=== PATIENT | female | born 1960 | race Hispanic/Latino ===

== ENCOUNTER 2020-09-07 07:46 | Emergency (ER) | payer BC, MEDICARE ==
[2020-09-07 07:52] VITALS: BP 145/78
--- NOTE | 2020-09-07 08:38 | XRay Report ---
CHEST 2 VIEWS INDICATION / CLINICAL INFORMATION: SOB, COPD, and asthma.. COMPARISON: None available. FINDINGS: SUPPORT DEVICES: There is a right jugular Port-A-Cath with the tip near upper cavoatrial junction. HEART / MEDIASTINUM: The heart size and pulmonary vasculature are normal. LUNGS / PLEURA: The lungs are hyperinflated. There is a 6 cm rounded mass in the left lower hemithora x posteriorly. There is also a 1.5 cm nodular density in the right lung base. No pneumothorax. ADDITIONAL FINDINGS: No significant additional findings. IMPRESSION: 1. Emphysema. 2. 6 cm mass in the left lower hemithorax posteriorly is nonspecific and may just represent a Bochdal ek hernia rather than a pulmonary or pleural mass. There is also a small nodular density in the right lung base. CT of the chest may be helpful in further evaluation. Signer Name: Frankie Cunningham MD Signed: 09/07/2020 8:33 AM Workstation Name: [id number]
[2020-09-07] MEDS ORDERED: IPRATROPIUM 0.02% NEBU 2.5 ML IH ONE ×2 (09:32→09:54)
[2020-09-07] MEDS ORDERED: ALBUTEROL 2.5 MG/3 ML NEBU IH ONE ×2 (09:32→09:53)
--- NOTE | 2020-09-07 14:33 | Emergency Department Report ---
HPI - General Chief Complaint: Dyspnea/Respdistress Time Seen by Provider: 09/07/20 14:12 - HPI HPI: This is a 60-year-old female presents to the emergency department with a complaint of a 1 week history of wheezing, mixed dry and productive cough, and some shortness of breath. Patient states that when she does expectorate, the sputum appears green. She denies any fever, chest pain, back pain, lower extremity swelling. She has a past medical history of COPD, not home O2 dependent, asthma, and MS. The patient was placed on Augmentin and a Medrol Dosepak by her PCP, Dr. Jay Jay Vilchis. She spoke with the PCP again on [place], 2 nights ago, and was switched to a prednisone taper. She denies any tobacco or illicit drug use. No recent travel or sick contacts at home. No known exposure to anyone with COVID-19. ED Past Medical Hx - Past Medical History Previous Medical History?: Yes Hx Asthma: Yes Hx COPD: Yes Additional medical history: MS - Social History Smoking Status: Never Smoker Substance Use Type: None - Medications Home Medications: Home Medications Medication Instructions Recorded Confirmed Last Taken Type Sulfamethoxazole/Trimethoprim 1 each PO BID #14 tablet 03/07/20 Unknown Rx [Bactrim DS TAB] Ipratropium [Atrovent NEB] 0.5 mg IH Q6H PRN #1 box 09/07/20 Unknown Rx ED Review of Systems ROS: Stated complaint: ASTHMA ATTACK Other details as noted in HPI Comment: All other systems reviewed and negative Constitutional: denies: chills, fever Eyes: denies: eye pain, vision change ENT: denies: ear pain, throat pain Respiratory: cough, shortness of breath, wheezing Cardiovascular: denies: chest pain, palpitations, edema Gastrointestinal: denies: abdominal pain, vomiting Genitourinary: denies: dysuria, discharge Musculoskeletal: denies: back pain, arthralgia Skin: denies: rash, lesions Neurological: denies: headache, weakness Physical Exam - Physical Exam Vital Signs: Vital Signs 09/07/20 09/07/20 09/07/20 07:51 09:51 12:22 Temperature 98.0 F Pulse Rate 99 H 77 Respiratory 24 24 Rate Blood Pressure 145/78 [Right] O2 Sat by Pulse 94 91 95 Oximetry Physical Exam: GENERAL: The patient is well-developed well-nourished. HENT: Normocephalic. Atraumatic. Patient has moist mucous membranes. EYES: Extraocular motions are intact. NECK: Supple. Trachea is midline. CHEST/LUNGS: Mild wheezing throughout the chest. No cough heard during examination. No tachypnea or accessory muscle use. There is no respiratory distress noted. HEART/CARDIOVASCULAR: Regular. There is no tachycardia. There is no murmur. ABDOMEN: Abdomen is soft, nontender. Patient has normal bowel sounds. SKIN: Skin is warm and dry. NEURO: The patient is awake, alert, and oriented. The patient is cooperative. The patient has no focal neurologic deficits. Normal speech. MUSCULOSKELETAL: There is no tenderness or deformity. There is no limitation range of motion. ED Course Vital Signs 09/07/20 09/07/20 09/07/20 07:51 09:51 12:22 Temperature 98.0 F Pulse Rate 99 H 77 Respiratory 24 24 Rate Blood Pressure 145/78 [Right] O2 Sat by Pulse 94 91 95 Oximetry ED Medical Decision Making - Lab Data Result diagrams: 09/07/20 15:08 09/07/20 15:08 - EKG Data -: EKG Interpreted by Mi EKG shows normal: sinus rhythm, axis, intervals, QRS complexes (Q waves to the septal leads), ST-T waves Rate: normal - EKG Data When compared to previous EKG there are: previous EKG unavailable Interpretation: other (Sinus rhythm, rate of 70 bpm, normal axis, normal intervals, Q waves to the septal leads. No ST elevation NH) - Radiology Data Radiology results: report reviewed CHEST 2 VIEWS INDICATION / CLINICAL INFORMATION: SOB, COPD, and asthma.. COMPARISON: None available. FINDINGS: SUPPORT DEVICES: There is a right jugular Port-A-Cath with the tip near upper cavoatrial junction. HEART / MEDIASTINUM: The heart size and pulmonary vasculature are normal. LUNGS / PLEURA: The lungs are hyperinflated. There is a 6 cm rounded mass in the left lower hemithorax posteriorly. There is also a 1.5 cm nodular density in the right lung base. No pneumothorax. ADDITIONAL FINDINGS: No significant additional findings. IMPRESSION: 1. Emphysema. 2. 6 cm mass in the left lower hemithorax posteriorly is nonspecific and may just represent a Bochdalek hernia rather than a pulmonary or pleural mass. There is also a small nodular density in the right lung base. - Medical Decision Making This patient presents to the emergency department with a complaint of a 1 week history of some wheezing, shortness of breath and coughing. She has been on ant ibiotics and has been on steroids over this time. The patient and her chart were not presented to me until after the patient had been in the emergency department for about 6 hours already. She was seen by a midlevel provider in triage and was given a continuous breathing treatment. Patient says that this helped greatly and that she is feeling improved from when she first presented to the emergency department. At the time of my examination the patient has some mild wheezing/bronchospasm throughout the chest. There is no tachypnea, accessory muscle use, conversational dyspnea, or signs of any acute or respiratory distress. Chest x-ray shows hyperinflation of the lungs and flattening of the diaphragms consistent with her COPD. No obvious pneumonia, pleural effusions, and no pneumothorax. 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 An EKG was done that does not show any morphology consistent with ST elevation myocardial infarction or any dysrhythmia. Patient's labs have been unremarkable including CBC and metabolic panel. I suggested that the patient receive further breathing treatments, steroids, and we could even try some magnesium. However, the patient says that she has a nebulizer and medications at home, and is currently on steroids, and is not interested in trying the magnesium secondary to other medications that she is taking for her MS as she does not know if there could be some cross reactions. Her vital signs have been reassuring throughout her ED course including being afebrile. The patient does have some transient mild decrease in oxygen saturation down to 91%, but this is most likely consistent with her COPD. The patient's pulse ox was 94% after a 2-minute exertional test. She has good outpatient follow-up with primary care. The patient has been given a prescription for ipratropium nebulizer treatments to add to her albuterol. She will return to the emergency department with any worsening of her symptoms or with any acute distress. Critical Care Time: No Critical care attestation.: If time is entered above; I have spent that time in minutes in the direct care of this critically ill patient, excluding procedure time. ED Disposition Clinical Impression: COPD exacerbation, Bronchospasm Asthma exacerbation Qualifiers: Asthma severity: unspecified severity Asthma persistence: unspecified Qualified Code(s): J45.901 - Unspecified asthma with (acute) exacerbation Disposition: TO HOME OR SELFCARE Is pt being admited?: No Condition: Stable Instructions: Asthma, Adult, Bronchospasm, Adult, Chronic Obstructive Pulmonary Disease, Chronic Obstructive Pulmonary Disease (ED) Additional Instructions: Please follow-up with your primary care physician in the next few days. Take the medications as prescribed. Return to the emergency department with any worsening of your symptoms, new or concerning symptoms not addressed during this current emergency department visit, or with any acute distress. Prescriptions: Ipratropium [Atrovent NEB] 0.5 mg IH Q6H PRN #1 box PRN Reason: Wheezing Referrals: AMANDA VILCHIS MD [Referring] - 2-3 Days Time of Disposition: 16:36
[2020-09-07 15:34] LABS: Basophils % (Auto) 0.3 % (0.0-1.8); Hematocrit 44.3 % (30.3-42.9); Hemoglobin 14.8 gm/dl (10.1-14.3); Lymphocytes # (Auto) 1.4 K/mm3 (1.2-5.4); Lymphocytes % (Auto) 12.8 % (13.4-35.0); Mean Corpuscular HGB Conc 34 % (30-34); Mean Corpuscular Volume 98 fl (79-97); Monocytes # (Auto) 0.5 K/mm3 (0.0-0.8); Monocytes % (Auto) 4.5 % (0.0-7.3); Platelet Count 329 K/mm3 (140-440); Red Blood Count 4.51 M/mm3 (3.65-5.03); Red Cell Distribution Width 12.7 % (13.2-15.2)
[2020-09-07 16:04] LABS: Blood Urea Nitrogen 12 mg/dL (7-17); Calcium 9.3 mg/dL (8.4-10.2); Hemolysis Index 16
[2020-09-07 16:06] LABS: BUN/Creatinine Ratio 17
== END 2020-09-07 17:02 | disposition home or self-care (01) ==
LOC: ED 07:46
DX: J44.1 Chronic obstructive pulmonary disease with (acute) exacerbation (principal); J98.01 Acute bronchospasm; Z79.899 Other long term (current) drug therapy; Z88.1 Allergy status to other antibiotic agents; Z88.8 Allergy status to other drugs, medicaments and biological substances
CPT/HCPCS: 36415; 71046; 80048; 85025; 93005; 94640

== ENCOUNTER 2021-07-10 10:20 | Emergency (ER) | payer BC, MEDICARE ==
--- NOTE | 2021-07-10 10:34 | Event Note ---
ED Screening Note ED Screening Note: co cp to left arm PCP Dr Keene- told her to come to ER off and on 2 days; tightness; rad to left arm and jaw PMH MS- JCBA POS -- HAS PORT FOR INJECTIONS MEDIASTINAL MASS- DEBULKED YEARS AGO COPD/ASTHMA HLD HTN CHRONIC PAIN NEUROPATHY NEUROGENIC BLADDER HOME MEDS VENTOLIN OMEPRAZOLE VALIUM SINGULARI VOLARIN TYSABU CYMBALTA OCREVUS BACLOFEN CARROLL OXY RITALIN ESTRADIAL HYDROCHLORATHIAZIDE TRELEGY PEPCID GAVISON ZYRTEC ASA VIT D VIT B 12 (SEE LIST IN PTS PURSE) This initial assessment/diagnostic orders/clinical plan/treatment(s) is/are subject to change based on patients health status, clinical progression and re- assessment by fellow clinical providers in the ED. Further treatment and workup at subsequent clinical providers discretion. Patient/guardian urged not to elope from the ED as their condition may be serious if not clinically assessed and managed. Initial orders include: TO ER FOR MD JOSEPH LAI ACS/MASS/URI
[2021-07-10 11:17] LABS: Basophils % (Auto) 0.4 % (0.0-1.8); Eosinophils # (Auto) 0.1 K/mm3 (0.0-0.4); Eosinophils % (Auto) 1.6 % (0.0-4.3); Hematocrit 40.5 % (30.3-42.9); Hemoglobin 13.5 gm/dl (10.1-14.3); Lymphocytes # (Auto) 1.3 K/mm3 (1.2-5.4); Lymphocytes % (Auto) 23.6 % (13.4-35.0); Mean Corpuscular HGB Conc 33 % (30-34); Mean Corpuscular Volume 93 fl (79-97); Monocytes # (Auto) 0.5 K/mm3 (0.0-0.8); Monocytes % (Auto) 8.7 % (0.0-7.3); Platelet Count 246 K/mm3 (140-440); Red Blood Count 4.38 M/mm3 (3.65-5.03); Red Cell Distribution Width 12.8 % (13.2-15.2)
--- NOTE | 2021-07-10 11:17 | XRay Report ---
CHEST PA AND LATERAL VIEWS INDICATION: Chest Pain. COMPARISON: 09/07/2020 FINDINGS: Support devices: Right-sided port is unchanged. Heart: Within normal limits. Lungs/Pleura: No acute pulmonary or pleural findings. Lungs remain hyperexpanded. Fat-containing jimmy ia at the left hemidiaphragm is again noted. IMPRESSION: 1. No acute findings. Signer Name: Helio Cristina MD Signed: 07/10/2021 11:12 AM Workstation Name: [id number]
[2021-07-10 11:42] LABS: Creatine Kinase MB 3.1 ng/mL (0.0-4.0)
[2021-07-10 11:44] LABS: Alanine Aminotransferase 16 units/L (7-56); Albumin 4.1 g/dL (3.9-5); BUN/Creatinine Ratio 14; Blood Urea Nitrogen 13 mg/dL (7-17); Calcium 8.8 mg/dL (8.4-10.2); Hemolysis Index 4
--- NOTE | 2021-07-10 11:48 | Emergency Department Report ---
ED Chest Pain HPI - General Chief Complaint: Chest Pain Stated Complaint: CHEST/JAW/HEAD PAIN Time Seen by Provider: 07/10/21 10:28 Source: patient Mode of arrival: Ambulatory Limitations: No Limitations - History of Present Illness Initial Comments: Patient is a 61-year-old female with past medical history of MS who does walk with a walker at baseline is presenting with chest discomfort. Patient states that approximately a week ago she had an episode of chest pain and this returned 2 days ago as well. Patient states that both episodes o ccurred while walking however the patient in general does not have any exertional chest discomfort or shortness of breath since she does not move very quickly due to her chronic MS. Patient states with both situations she had chest pressure which was from the epigastrium through the center chest. States she felt some discomfort in the right jaw and shoulder. There was a associated shortness of breath. Both instances the patient states that after chewing to aspirin she states she felt much improved. Patient was told to come to the emergency department by her primary care physician. Patient denies any cough cold congestion fevers or chills. Patient has no significant risk factors for coronary artery disease except for age and the fact that she is a former smoker. Patient has not smoked tobacco in approximately a year. - Related Data Previous Rx's Medication Instructions Recorded Last Taken Type Sulfamethoxazole/Trimethoprim 1 each PO BID #14 tablet 03/07/20 Unknown Rx [Bactrim DS TAB] Ipratropium [Atrovent NEB] 0.5 mg IH Q6H PRN #1 box 09/07/20 Unknown Rx Famotidine [Pepcid] 20 mg PO BID #20 tablet 07/10/21 Unknown Rx Allergies Allergy/AdvReac Type Severity Reaction Status Date / Time clindamycin Allergy Unknown Verified 03/07/20 18:45 cyclobenzaprine Allergy Unknown Verified 03/07/20 18:45 [From Flexeril] morphine Allergy Unknown Verified 03/07/20 18:45 NSAIDS (Non-Steroidal Allergy Unknown Verified 03/07/20 18:45 Anti-Inflamma tramadol Allergy Unknown Verified 03/07/20 18:45 Heart Score - HEART Score History: Moderately suspicious EKG: Normal Age: 45-65 Risk factors: No known risk factors Troponin: < normal limit HEART Score: 2 - EKG Read Time Time EKG Completed: 10:45 EKG Read Time: 10:50 ED Review of Systems ROS: Stated complaint: CHEST/JAW/HEAD PAIN Other details as noted in HPI Comment: All other systems reviewed and negative ED Past Medical Hx - Past Medical History Previous Medical History?: Yes Hx Asthma: Yes Hx COPD: Yes Additional medical history: MS - Surgical History Past Surgical History?: No - Social History Smoking Status: Never Smoker Substance Use Type: None - Medications Home Medications: Home Medications Medication Instructions Recorded Confirmed Last Taken Type Sulfamethoxazole/Trimethoprim 1 each PO BID #14 tablet 03/07/20 Unknown Rx [Bactrim DS TAB] Ipratropium [Atrovent NEB] 0.5 mg IH Q6H PRN #1 box 09/07/20 Unknown Rx Famotidine [Pepcid] 20 mg PO BID #20 tablet 07/10/21 Unknown Rx ED Physical Exam - General Limitations: No Limitations General appearance: alert, in no apparent distress - Head Head exam: Present: atraumatic, normocephalic - Eye Eye exam: Present: normal appearance, PERRL, EOMI - ENT ENT exam: Present: mucous membranes moist - Neck Neck exam: Present: normal inspection - Respiratory Respiratory exam: Present: normal lung sounds bilaterally. Absent: respiratory distress, wheezes, rales, rhonchi - Cardiovascular Cardiovascular Exam: Present: regular rate, normal rhythm, normal heart sounds. Absent: systolic murmur, diastolic murmur, rubs, gallop - GI/Abdominal GI/Abdominal exam: Present: soft, normal bowel sounds. Absent: distended, tenderness, guarding, rebound - Extremities Exam Extremities exam: Present: normal inspection - Back Exam Back exam: Present: normal inspection - Neurological Exam Neurological exam: Present: alert, oriented X3 - Psychiatric Psychiatric exam: Present: normal affect, normal mood - Skin Skin exam: Present: warm, dry, intact, normal color. Absent: rash ED Course Vital Signs 07/10/21 07/10/21 10:24 12:17 Temperature 98.0 F Pulse Rate 74 74 Respiratory 16 16 Rate Blood Pressure 138/78 134/78 O2 Sat by Pulse 92 96 Oximetry ED Medical Decision Making - Lab Data Result diagrams: 07/10/21 11:07 07/10/21 11:07 Lab Results 07/10/21 07/10/21 07/10/21 Range/Units 11:07 11:07 11:07 WBC 5.5 (4.5-11.0) K/mm3 RBC 4.38 (3.65-5.03) M/mm3 Hgb 13.5 (10.1-14.3) gm/dl Hct 40.5 (30.3-42.9) % MCV 93 (79-97) fl MCH 31 (28-32) pg MCHC 33 (30-34) % RDW 12.8 L (13.2-15.2) % Plt Count 246 (140-440) K/mm3 Lymph % (Auto) 23.6 (13.4-35.0) % Harper % (Auto) 8.7 H (0.0-7.3) % Eos % (Auto) 1.6 (0.0-4.3) % Baso % (Auto) 0.4 (0.0-1.8) % Lymph # (Auto) 1.3 (1.2-5.4) K/mm3 Harper # (Auto) 0.5 (0.0-0.8) K/mm3 Eos # (Auto) 0.1 (0.0-0.4) K/mm3 Baso # (Auto) 0.0 (0.0-0.1) K/mm3 Seg Neutrophils % 65.7 (40.0-70.0) % Seg Neutrophils # 3.6 (1.8-7.7) K/mm3 PT 12.8 (12.2-14.9) Sec. INR 0.87 (0.87-1.13) APTT 32.1 (24.2-36.6) Sec. Sodium 137 (137-145) mmol/L Potassium 4.5 (3.6-5.0) mmol/L Chloride 100.8 (98-107) mmol/L Carbon Dioxide 26 (22-30) mmol/L Anion Gap 15 mmol/L BUN 13 (7-17) mg/dL Creatinine 0.9 (0.6-1.2) mg/dL Estimated GFR > 60 ml/min BUN/Creatinine Ratio 14 % Glucose 93 (65-100) mg/dL Calcium 8.8 (8.4-10.2) mg/dL Total Bilirubin 0.50 (0.1-1.2) mg/dL AST 24 (5-40) units/L ALT 16 (7-56) units/L Alkaline Phosphatase 82 (35-129) units/L Total Creatine Kinase 153 H (30-135) units/L CK-MB (CK-2) 3.1 (0.0-4.0) ng/mL CK-MB (CK-2) Rel Index 2.0 (0-4) Troponin T < 0.010 (0.00-0.029) ng/mL Total Protein 6.8 (6.3-8.2) g/dL Albumin 4.1 (3.9-5) g/dL Albumin/Globulin Ratio 1.5 % Urine Color (Yellow) Urine Turbidity (Clear) Urine pH (5.0-7.0) Ur Specific [place] (1.003-1.030) Urine Protein (Negative) mg/dL Urine Glucose (UA) (Negative) mg/dL Urine Ketones (Negative) mg/dL Urine Blood (Negative) Urine Nitrite (Negative) Urine Bilirubin (Negative) Urine Urobilinogen (<2.0) mg/dL Ur Leukocyte Esterase (Negative) Urine WBC (Auto) (0.0-6.0) /HPF Urine RBC (Auto) (0.0-6.0) /HPF U Epithel Cells (Auto) (0-13.0) /HPF 07/10/21 07/10/21 Range/Units 13:09 Unknown WBC (4.5-11.0) K/mm3 RBC (3.65-5.03) M/mm3 Hgb (10.1-14.3) gm/dl Hct (30.3-42.9) % MCV (79-97) fl MCH (28-32) pg MCHC (30-34) % RDW (13.2-15.2) % Plt Count (140-440) K/mm3 Lymph % (Auto) (13.4-35.0) % Harper % (Auto) (0.0-7.3) % Eos % (Auto) (0.0-4.3) % Baso % (Auto) (0.0-1.8) % Lymph # (Auto) (1.2-5.4) K/mm3 Harper # (Auto) (0.0-0.8) K/mm3 Eos # (Auto) (0.0-0.4) K/mm3 Baso # (Auto) (0.0-0.1) K/mm3 Seg Neutrophils % (40.0-70.0) % Seg Neutrophils # (1.8-7.7) K/mm3 PT (12.2-14.9) Sec. INR (0.87-1.13) APTT (24.2-36.6) Sec. Sodium (137-145) mmol/L Potassium (3.6-5.0) mmol/L Chloride (98-107) mmol/L Carbon Dioxide (22-30) mmol/L Anion Gap mmol/L BUN (7-17) mg/dL Creatinine (0.6-1.2) mg/dL Estimated GFR ml/min BUN/Creatinine Ratio % Glucose (65-100) mg/dL Calcium (8.4-10.2) mg/dL Total Bilirubin (0.1-1.2) mg/dL AST (5-40) units/L ALT (7-56) units/L Alkaline Phosphatase (35-129) units/L Total Creatine Kinase (30-135) units/L CK-MB (CK-2) (0.0-4.0) ng/mL CK-MB (CK-2) Rel Index (0-4) Troponin T < 0.001 (0.00-0.029) ng/mL Total Protein (6.3-8.2) g/dL Albumin (3.9-5) g/dL Albumin/Globulin Ratio % Urine Color Straw (Yellow) Urine Turbidity Clear (Clear) Urine pH 6.0 (5.0-7.0) Ur Specific [place] 1.005 (1.003-1.030) Urine Protein <15 mg/dl (Negative) mg/dL Urine Glucose (UA) Neg (Negative) mg/dL Urine Ketones Neg (Negative) mg/dL Urine Blood Neg (Negative) Urine Nitrite Neg (Negative) Urine Bilirubin Neg (Negative) Urine Urobilinogen < 2.0 (<2.0) mg/dL Ur Leukocyte Esterase Neg (Negative) Urine WBC (Auto) < 1.0 (0.0-6.0) /HPF Urine RBC (Auto) 1.0 (0.0-6.0) /HPF U Epithel Cells (Auto) < 1.0 (0-13.0) /HPF - EKG Data -: EKG Interpreted by Hi EKG shows normal: sinus rhythm, axis, intervals, QRS complexes, ST-T waves Rate: normal - EKG Data Interpretation: normal EKG 07/10/21 11:47 1050 - Radiology Data [facility] [address] [place] [address] XRay Report Signed Patient: RHETT MATOS MR#: [id number] 1 : 1960 Acct:[id number] Age/Sex: 61 / F ADM Date: 07/10/21 Loc: ED Attending Dr: Ordering Physician: EMIL HOLMAN Date of Service: 07/10/21 Procedure(s): XR chest routine 2V Accession Number(s): [id number] cc: EMIL HOLMAN Fluoro Time In Minutes: CHEST PA AND LATERAL VIEWS INDICATION: Chest Pain. COMPARISON: 09/07/2020 FINDINGS: Support devices: Right-sided port is unchanged. Heart: Within normal limits. Lungs/Pleura: No acute pulmonary or pleural findings. Lungs remain hyperexpanded. Fat-containing hernia at the left hemidiaphragm is again noted. IMPRESSION: 1. No acute findings. Signer Name: Helio Cristina MD Signed: 07/10/2021 11:12 AM Workstation Name: [email or web address] - Medical Decision Making Patient with 2 - troponins. Chest x-ray is within normal limits and her heart score is low. Will fax a chest pain referral form to [facility]. Patient stable for discharge. Critical care attestation.: If time is entered above; I have spent that time in minutes in the direct care of this critically ill patient, excluding procedure time. ED Disposition Clinical Impression: Atypical chest pain Disposition: HOME / SELF CARE / HOMELESS Is pt being admited?: No Does the pt Need Aspirin: No Condition: Stable Instructions: Nonspecific Chest Pain, Adult Prescriptions: Famotidine [Pepcid] 20 mg PO BID #20 tablet Referrals: TARSHA CRANE MD [Staff Physician] - 3-5 Days Time of Disposition: 15:05
[2021-07-10 12:21] VITALS: BP 134/78
[2021-07-10 12:52] LABS: Bilirubin,Urine NEG (Negative); Blood,Urine NEG (Negative); Color,Urine Straw (Yellow); Protein,Urine <15 mg/dL mg/dL (Negative); Urobilinogen,Urine < 2.0 mg/dL (<2.0); WBC,Urine < 1.0 /HPF (0.0-6.0)
[2021-07-10 12:57] LABS: INR 0.87 (0.87-1.13)
[2021-07-10 12:58] LABS: Partial Thromboplastin Time 32.1 Sec. (24.2-36.6)
--- NOTE | 2021-07-11 14:12 | Electrocardiograph Report ---
[facility] Test Date: 2021-07-10 Test Time: 10:45:05 Pat Name: RHETT MATOS Department: Room: Gender: F Sample Steamer: DEIRDRE : 1960 Requested By: EMIL HOLMAN Order Number: [id number] Reading MD: Valeriy German Measurements Intervals [place] Rate: 68 P: 55 NM: 132 QRS: 76 QRSD: 87 T: 57 QT: 421 QTc: 447 Interpretive Statements Sinus rhythm No previous ECG available for comparison Electronically Signed On 07-11-2021 14:12:16 EDT by Valeriy German
== END 2021-07-10 15:21 | disposition home or self-care (01) ==
LOC: ED 10:20
DX: R07.89 Other chest pain (principal); R68.84 Jaw pain; M25.511 Pain in right shoulder; R06.02 Shortness of breath; J45.909 Unspecified asthma, uncomplicated; J44.9 Chronic obstructive pulmonary disease, unspecified; Z88.1 Allergy status to other antibiotic agents; Z88.8 Allergy status to other drugs, medicaments and biological substances; Z88.5 Allergy status to narcotic agent
CPT/HCPCS: 36415; 71046; 80053; 81001; 82550; 82553; 84484; 85025; 85610; 85730; 93005; 99283; 99284